=== PATIENT | male | born 1995 | race Caucasian/White ===

== ENCOUNTER 2017-07-25 08:06 | Emergency (ER) | payer OTHER ==
[2017-07-25 08:17] VITALS: TEMP 97.5; BMI 26.6
--- NOTE | 2017-07-25 08:39 | PDOC ---
History of Present Illness <Gregory Dyson - Last Filed: 07/25/17 13:45> - General History Source: Patient, Family Exam Limitations: No Limitations - History of Present Illness Initial Comments: 07/25/17 09:15 The patient is a 22 year old male, with no significant past medical history, who presents to the emergency department with, multiple episodes of non bloody non bilious emesis, subjective fever, chills and 2 episodes of diarrhea (dark black soft stool) beginning approx. 11 hours ago. The patient reports he went to a [employer] last night where he drank 3 glasses of wine and had multiple slices of pizza. The patient reports that beginning at approx. 10pm last night he experienced multiple episodes of emesis (non bloody non bilious) throughout the night and 2 episodes of diarrhea (dark black soft stool). The patient reports the subjective fever and chills secondary to the episodes of emesis. The patient reports that no one else from the [employer] is currently feeling sick from eating the pizza. He denies any recent cough, headache or dizziness. He denies any recent abdominal pain. He denies any recent chest pain or shortness of breath. He denies any recent dysuria, frequency, urgency or hematuria. Allergies: NKA Past surgical history: None reported. Social History: Occasional EtOH use. Pt. reports daily marijuana use. Primary Care Physician: Dr. Balta Roque <Trino Christianson - Last Filed: 07/25/17 14:23> - General Chief Complaint: Vomiting/Diarrhea Stated Complaint: NAUSEA/VOMITING Time Seen by Provider: 07/25/17 08:39 Past History - Past Medical History COPD: No DVT: No - Suicide/Smoking/Psychosocial Hx Smoking History: Unknown if ever smoked Have you smoked in the past 12 months: No Information on smoking cessation initiated: No Hx Alcohol Use: No Drug/Substance Use Hx: No Substance Use Type: Alcohol, Marijuana <Gregory Dyson - Last Filed: 07/25/17 13:45> <Trino Christianson - Last Filed: 07/25/17 14:23> - Past Medical History Allergies/Adverse Reactions: Allergies Allergy/AdvReac Type Severity Reaction Status Date / Time No Known Allergies Allergy Verified 07/25/17 09:33 Home Medications: Ambulatory Orders NK [No Known Home Medication] 07/25/17 Review of Systems - Review of Systems Comments:: 07/25/17 09:16 CONSTITUTIONAL: +Fever. +Chills. No fatigue EYES: No visual changes ENT: No ear pain, no sore throat CARDIOVASCULAR: No chest pain, no palpitations RESPIRATORY: No cough, no SOB GI: +Nausea. +Vomiting. +Diarrhea. No abdominal pain, no constipation. GENITOURINARY: No dysuria, no frequency, no hematuria MUSKULOSKELETAL: No backpain, no joint pain, no myalgias SKIN: No rash NEURO: No headache <Trino Christianson - Last Filed: 07/25/17 14:23> *Physical Exam - Vital Signs Last Vital Signs Temp Pulse Resp BP Pulse Ox 97.5 F L 68 18 100/58 100 07/25/17 08:09 07/25/17 08:09 07/25/17 08:09 07/25/17 08:09 07/25/17 08:09 <Gregory Dyson - Last Filed: 07/25/17 13:45> - Vital Signs Last Vital Signs Temp Pulse Resp BP Pulse Ox 97.5 F L 68 18 100/58 100 07/25/17 08:09 07/25/17 08:09 07/25/17 08:09 07/25/17 08:09 07/25/17 08:09 - Physical Exam Comments: 07/25/17 10:39 CONSTITUTIONAL: Awake and alert, non-toxic appearance HEAD: Normocephalic; atraumatic EYES: PERRL; EOM intact ENMT: +Dry mucus membranes. External appears normal; normal oropharynx NECK: Supple; non-tender; no cervical lymphadenopathy CARD: Normal S1, S2; no murmurs, rubs, or gallops RESP: Normal chest excursion with respiration; breath sounds clear and equal bilaterally; no wheezes, rhonchi, or rales ABD: Soft, non-distended; non-tender; no palpable organomegaly, no palpable hernias EXT: Normal ROM in all four extremities; non-tender to palpation; distal pulses intact SKIN: Warm, dry, no rash NEURO: No focal neurological deficiencies. <Trino Christianson - Last Filed: 07/25/17 14:23> ED Treatment Course - LABORATORY CBC & Chemistry Diagram: 07/25/17 09:10 07/25/17 09:10 <Gregory Dyson - Last Filed: 07/25/17 13:45> - LABORATORY CBC & Chemistry Diagram: 07/25/17 09:10 07/25/17 09:10 <Trino Christianson - Last Filed: 07/25/17 14:23> Medical Decision Making - Medical Decision Making 10:03 Patient is a 22-year-old male with history of alcohol and marijuana use who presents to the ER with numerous episodes of nonbloody, nonbilious vomiting and dark tarry stools. Patient smokes marijuana daily and drank wine in the day prior to the onset of symptoms. In the ER, patient on initial evaluation has dry mucous membranes, soft, nontender abdomen, mildly tachycardic and is noted to have mild erythema of the perianal area likely related to local irritation. We'll obtain CBC/CMP/lipase/stool for guaiac. Will hydrate, we'll administer into the medic therapy. Will reassess. 07/25/17 13:09 Patient reassessed. Patient is resting comfortably, symptom and pain free. Patient's tolerating by mouth. Serial abdominal exams reveal no focal deficits. Patient is not having any upper respiratory infectious-like symptoms and there is no evidence of petechial rash. Leukocytosis likely related to acute stress reaction related to numerous episodes of vomiting. I suspect combination of daily marijuana use and alcohol. There is no evidence of pancreatitis. There is no evidence of alcoholic ketoacidosis. Will discharge with Zantac therapy with outpatient follow-up. 07/25/17 13:45 Patient tolerated by mouth. Reassessed again without complaints. Will discharge. 07/25/17 13:48 There is no evidence of upper GI bleeding or acute appendicitis at this time. I do not suspect viscus perforation. Will discharge. <Gregory Dyson - Last Filed: 07/25/17 13:45> *DC/Admit/Observation/Transfer <Gregory Dyson - Last Filed: 07/25/17 13:45> - Attestations Scribe Attestion: 07/25/17 09:17 Documentation prepared by Trino Christianson, acting as medical assistant per diem for Gregory Dyson MD. <Trino Christianson - Last Filed: 07/25/17 14:23> Diagnosis at time of Disposition: Marijuana abuse Nausea & vomiting Qualifiers: Vomiting type: unspecified Vomiting Intractability: non-intractable Qualified Code(s): R11.2 - Nausea with vomiting, unspecified Abdominal pain Qualifiers: Abdominal location: unspecified location Qualified Code(s): R10.9 - Unspecified abdominal pain - Discharge Dispostion Disposition: HOME Condition at time of disposition: Stable - Referrals Referrals: Balta Roque MD [Primary Care Provider] - - Patient Instructions Printed Discharge Instructions: DI for Abdominal Pain-Adult, Nausea and Vomiting-Adult Additional Instructions: Please take Zantac-150 no grams twice daily. Refrain from drinking alcohol smoking marijuana. Follow-up with your primary care physician. Return immediately for worsening symptoms. - Post Discharge Activity
[2017-07-25] MEDS ORDERED: METOCLOPRAMIDE HCL INJECTION 10 MG/2 ML VIAL IVPUSH ONE (08:56)
[2017-07-25] MEDS ORDERED: DEXTROSE 5%-NORMAL SALINE 1,000 ML IV ONE (08:57)
[2017-07-25] MEDS ORDERED: FAMOTIDINE IV 20 MG/12 ML VIAL IVPB ONE (09:06)
[2017-07-25] MEDS ORDERED: METOCLOPRAMIDE HCL INJECTION 10 MG/2 ML VIAL ONE (09:24)
[2017-07-25] MEDS ORDERED: FAMOTIDINE 20 MG/50 ML IVPB 20 MG/50 ML MG IVPB ONE (09:25)
[2017-07-25 09:30] LABS: BASO % 0.2 % (0-2.0); HEMATOCRIT 47.7 % (35.4-49); HEMOGLOBIN 15.2 GM/dL (11.7-16.9); LYMPH % 5.9 % (8-40); MCH 27.2 pg (25.7-33.7); MEAN CELL VOLUME 85.1 fl (80-96); MEAN PLT VOLUME 8.2 fl (7.5-11.1); MONO % 5.2 % (3.8-10.2); NEUT % 88.7 % (42.8-82.8); PLATELET COUNT 358 K/MM3 (134-434); RBC 5.61 M/mm3 (4.00-5.60); RDW 13.7 % (11.9-15.9); WHITE BLOOD COUNT 22.3 K/mm3 (4.0-10.0)
[2017-07-25 09:49] LABS: ALBUMIN 5.1 g/dl (3.4-5.0); ANION GAP 13 (8-16); BILIRUBIN,TOTAL 1.4 mg/dL (0.2-1.0); BLOOD UREA NITROGEN 17 mg/dL (7-18); CALCIUM 9.3 mg/dL (8.5-10.1); CHLORIDE 105 mmol/L (98-107); CO2 22 mmol/L (21-32); CREATININE 0.9 mg/dL (0.7-1.3); GLUCOSE,RANDOM 98 mg/dL (74-106); MAGNESIUM 2.2 mg/dL (1.8-2.4); SGOT/AST 21 U/L (15-37); SGPT/ALT 26 U/L (12-78); SODIUM 140 mmol/L (136-145)
[2017-07-25 09:50] LABS: ALK PHOS 86 U/L (45-117)
[2017-07-25] MEDS ORDERED: SODIUM CHLORIDE 1,000 ML IV STA (10:21)
[2017-07-25 11:15] LABS: URINE APPEARANCE CLEAR; URINE BILIRUBIN NEGATIVE (NEGATIVE); URINE BLOOD NEGATIVE (NEGATIVE); URINE COLOR YELLOW; URINE GLUCOSE (UA) 3+ (NEGATIVE); URINE KETONE 2+ (NEGATIVE); URINE LEUK ESTERASE NEGATIVE (NEGATIVE); URINE NITRITE NEGATIVE (NEGATIVE); URINE PROTEIN NEGATIVE (NEGATIVE); URINE UROBILINOGEN NEGATIVE mg/dL (0.2-1.0)
[2017-07-25 12:15] LABS: COCAINE, UR NEGATIVE ng/ml (CUTOFF=300); OPIATES, URI NEGATIVE ng/ml (CUTOFF=300); PHENCYCLIDINE,URINE NEGATIVE ng/ml (CUTOFF=25); URINE AMPHETAMINES NEGATIVE ng/ml (CUTOFF=500); URINE BARBITURATES NEGATIVE ng/ml (CUTOFF=200); URINE BENZODIAZEPINES NEGATIVE ng/ml (CUTOFF=200)
[2017-07-25 12:16] LABS: METHADONE, UR NEGATIVE ng/ml (CUTOFF=300)
[2017-07-25 14:49] VITALS: BP 110/69; PULSE 104
== END 2017-07-25 14:49 | disposition home or self-care (01) ==
LOC: JER 08:06
PROC: 3E0337Z Introduction of Electrolytic and Water Balance Substance into Peripheral Vein, Percutaneous Approach (ICD-10-PCS; principal; 2017-07-25)
PROC: 3E0337Z Introduction of Electrolytic and Water Balance Substance into Peripheral Vein, Percutaneous Approach (ICD-10-PCS; 2017-07-25)
PROC: 3E033GC Introduction of Other Therapeutic Substance into Peripheral Vein, Percutaneous Approach (ICD-10-PCS; 2017-07-25)
PROC: 3E033GC Introduction of Other Therapeutic Substance into Peripheral Vein, Percutaneous Approach (ICD-10-PCS; 2017-07-25)
PROC: 3E033GC Introduction of Other Therapeutic Substance into Peripheral Vein, Percutaneous Approach (ICD-10-PCS; 2017-07-25)
DX: F12.10 Cannabis abuse, uncomplicated (principal); F10.10 Alcohol abuse, uncomplicated; R11.2 Nausea with vomiting, unspecified
CPT/HCPCS: 36415; 80053; 80307; 81003; 82272; 83690; 83735; 85025; 96361; 96374; 96375; 99282-25